=== PATIENT | female | born 1965 | race Caucasian/White ===

== ENCOUNTER 2020-08-02 17:40 | Emergency (ER) | payer MEDICAID, SELFPAY ==
[2020-08-02 18:46] VITALS: BP 146/96; PULSE 81; RESP 18; TEMP 36.4; O2SAT 100; BMI 21.9
--- NOTE | 2020-08-02 18:50 | PC.NURSE ---
call [facility] for ride home: [phone] [address]
--- NOTE | 2020-08-02 19:21 | ED_ITS ---
HPI - Alcohol General Chief Complaint: ETOH/Substance Use Stated Complaint: ETOH Time Seen by Provider: 08/02/20 18:25 Source: EMS Mode of arrival: EMS Limitations: no limitations History of Present Illness HPI narrative: Currently staying in a halfway she return back to the halfway stumbling appearing to be under the influence of substance, she admitted to drinking alcohol thus EMS was called. No fall or trauma. No complaints. She was somewhat combative with EMS but is much calmer upon arrival. No SI or HI. Strong odor of EtOH. In addition to this she states she was seen a week and half ago at [facility] had stitches placed on the right side of scalp and is requesting to have these removed. complaint: alcohol intoxication Related Data Allergies Allergy/AdvReac Type Severity Reaction Status Date / Time No Known Allergies Allergy Verified 08/02/20 18:39 Review of Systems Review of Systems: Constitutional: No Weight loss, No Fever, No Chills, No Night Sweats, No Fatigue, No Malaise ENT/Mouth: No Hearing loss, No Ear Pain, No Nasal Congestion, No Sinus Pain, No Hoarseness, No sore throat, No Rhinorrhea, No Swallowing Difficulty Eyes: No Eye Pain, No Swelling, No Redness, No Foreign Body, No Discharge, No Vision Changes Cardiovascular: No Chest Pain, No SOB, No Dyspnea on Exertion, No Orthopnea, No Edema, No Palpitations Respiratory: No Cough, No Sputum, No Wheezing, No Dyspnea Gastrointestinal: No Nausea, No Vomiting, No Diarrhea, No Constipation, No abdominal Pain, No Hematochezia, No Melena Genitourinary: no irregular bleeding, No Dysuria, No Urinary Frequency, No Hematuria, No Urinary Incontinence, No Urgency, No Flank Pain, No Urinary Flow Changes, No Hesitancy Musculoskeletal: No joint pain, No Myalgias, No Joint Swelling Skin: No Skin Lesions, No rash Neuro: No Weakness, No Numbness, No Paresthesias, No Loss of Consciousness, No Dizziness, No Headache Psych: No Anxiety/Panic, No Depression, No SI/HI/AH/VH Heme/Lymph: No Bruising, No Bleeding,No Lymphadenopathy Endocrine: No Polyuria, No Polydipsia, No Temperature Intolerance Yes all other systems are reviewed and are negative ON LICENSE OF [facility] Past Medical History Medical History (Updated 08/02/20 @ 19:24 by Neal Gordon NP) Anxiety HTN (hypertension) Social History Social History Advance Directives: No Advance Directives Information Provided: Yes Physical Exam Vital Signs: Vital Signs: Last Vital Signs Temp 97.6 F 08/02/20 18:46 Pulse 81 08/02/20 18:46 Resp 18 08/02/20 18:46 BP 146/96 H 08/02/20 18:46 Pulse Ox 100 08/02/20 18:46 Body Mass Index 21.9 Reviewed Const: Other: Intoxicated appearing, odor of EtOH General: cooperative and anxious; No intoxicated appearing Nutritional Appearance: average body habitus Orientation/consciousness: patient oriented x3 HENMT: Head: Yes normal to inspection Head images: 1. Six stitches, appears well healed, no induration, erythema or tender palpation. Ears: hearing grossly normal bilaterally Eyes: General: appearance normal, both eyes and all related structures Visual Ragland: normal visual ragland by confrontation Neck: Neck: Yes normal visual inspection, No positive Brudzinski's sign, No positive Kernig's sign and No tender Thyroid: Thyroid normal Chest: Chest palpation & inspection: normal inspection of the chest Resp: Effort & Inspection: normal respiratory effort Cardio: Jugular venous distension: no JVD Rhythm: regular rhythm Heart sounds: S1 normal heart sound present and S2 normal heart sound present GI: Inspection: Yes normal to inspection Palpation (GI): Soft to palpation Percussion: Yes normal to percussion Auscultation: normal bowel sounds : General: Yes no CVA tenderness Back/Spine/Pelvis: Back: no CVA tenderness Skin: General skin exam: no rashes or lesions noted Neuro: General: patient oriented x3 Extrem: General: Yes normal to inspection Course Reevaluation(s) Reevaluation #1: Six stitches removed with ease from the right side of the posterior ear/scalp. Site appears to be well healed. She is clinically sober has been ambulatory around the ED eating drinking. Requesting to be discharged. Decline a detox services. [facility] provide a ride back to halfway. Discharge Plan Discharge Clinical Impression: Alcoholic intoxication, Encounter for removal of sutures Patient Disposition: Home, Self-Care Instructions: Abuse of Alcohol (ED) Additional Instructions: Please stop drinking alcohol as this is very bad for her health and could cause long-term end-organ problems Please go directly to detox Please follow up with her primary care doctor Dr. Colin Return if any concerns or worsening symptoms Thank you Referrals: Néstor Colin MD [Primary Care Provider] - 2 days
--- NOTE | 2020-08-02 19:22 | PC.NURSE ---
[facility] DOESN'T HAVE TRANSPORT AT THIS TIME. ONLY 1 [address]YA[address] WHO [address]ES[address]'T DRIVE. MORE STAFF AVAILABLE IN THE AM. DIRECTOR IS [phone] CHET RUVALCABA. CHET STATES THAT [facility] DOESN'T HAVE TRANSPORT. HAS TO SOBER UP BEFORE COMING BACK TO [facility]. IF PATIENT GOES ANYWHERE ELSE SHE WILL LOOSE HER BED IN [facility].
--- NOTE | 2020-08-02 19:46 | PC.NURSE ---
POCKET BOOK IN [facility]ON ROOM. PT EATING SANDWICH AND DRINK.
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
== END 2020-08-02 21:08 | disposition home or self-care (01) ==
PROVIDERS: Emergency Provider Internal Medicine; PCP Internal Medicine
DX: F10.129 Alcohol abuse with intoxication, unspecified (principal); Y90.9 Presence of alcohol in blood, level not specified; Z48.02 Encounter for removal of sutures; Z71.41 Alcohol abuse counseling and surveillance of alcoholic
CPT/HCPCS: 99283